=== PATIENT | female | born 1970 | race Caucasian/White ===

== ENCOUNTER 2017-05-17 10:07 | Emergency (ER) | payer MEDICAID ==
[~2017-05-17] VITALS: Ht 167.6 cm; Wt 87.5 kg
[~2017-05-17 10:07] MED LIST: BUTA1CAP39 PO; ONDA4TAB14 PO; POLY10DR19 LEFT EYE
[2017-05-17 10:16] VITALS: Ht 167.6 cm; Wt 87.5 kg
[2017-05-17] MEDS ORDERED: IBUPROFEN 600 MG TAB PO ONE (11:30)
--- NOTE | 2017-05-17 11:51 | RADRPT ---
PROCEDURE: Shoulder x-ray CLINICAL INDICATION: Pain TECHNIQUE: Left shoulder 3 views COMPARISON: None FINDINGS: 3 views of the left shoulder demonstrate no displaced fracture. The humeral head articulates anatom ically with the glenoid fossa. The acromioclavicular articulation is within normal limits. Bones a re normally mineralized. Soft tissues are unremarkable. IMPRESSION: No acute fracture dislocation No significant degenerate change RPTAT: HH .Steven Rivers MD, Date Time Electronically viewed and signed by .Steven Rivers MD, on 05/17/2017 11:51 .W/
[2017-05-17] MEDS ORDERED: ACETAMINOPHEN 500 MG TAB PO STA (12:07)
[2017-05-17] MEDS ORDERED: IBUP-1542 PO (12:31)
[2017-05-17] MEDS ORDERED: ORPH100T PO (12:31)
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
== END 2017-05-17 13:30 | disposition home or self-care (01) ==
LOC: FTE 10:07
DX: M25.512 Pain in left shoulder (principal); M54.2 Cervicalgia; H92.02 Otalgia, left ear; R51 Headache
CPT/HCPCS: 73030; Z7502; Z7610

== ENCOUNTER 2017-09-27 11:24 | Emergency (ER) | END 2017-09-27 16:48 | disposition home or self-care (01) ==